=== PATIENT | male | born 1935 | race Caucasian/White ===

== ENCOUNTER 2021-08-01 09:49 | Day surgery (SDC) | payer MEDICARE, OTHER ==
[2021-08-01] MEDS: Lactated Ringers 1,000 ML IV SCH (10:10)
[2021-08-01] MEDS ORDERED: Propofol 200 MG/20 ML SDV ONE (10:36)
[2021-08-01] MEDS ORDERED: fentaNYL 100 MCG/2 ML SDV ONE (10:36)
[2021-08-01] MEDS ORDERED: ePHEDrine 50 MG/ML SDV ONE (11:43)
[2021-08-01 12:12] VITALS: BP 120/60; PULSE 77
--- NOTE | 2021-08-02 10:14 | OR ---
PREOPERATIVE DIAGNOSIS: Positive FIT test. POSTOPERATIVE DIAGNOSIS: Positive FIT test. PROCEDURE PERFORMED: Colonoscopy with polypectomy. COMPLICATIONS: None. SPECIMENS: Polyps at the cecum and 2 polyps at around 100 cm. ESTIMATED BLOOD LOSS: 5 mL. DESCRIPTION OF PROCEDURE: This was done in the endoscopy suite. Sedation was given per Anesthesia. He was placed in the left lateral position. First, a rectal exam was done and was normal. Scope was introduced into the rectum, slowly advanced to the rectum, sigmoid, descending, transverse, and ascending colon until the cecum was reached. Upon reaching the cecum, a relatively large polyp was found, removed in a piecemeal fashion with a hot loop forceps. The scope was then slowly withdrawn. At 100 cm, I found 2 polyps which were removed by hot loop forceps. The remainder of the exam was normal. FINAL DIAGNOSIS: Cecal polyp and 2 polyps at 100 cm. BKD: 08/01/2021 11:50:14 MODL: 08/01/2021 19:45:44 /[id number]
== END 2021-08-01 13:45 | disposition home or self-care (01) ==
LOC: VM.SDS 09:49
PROVIDERS: ATTEND Surgery
DX: D12.0 Benign neoplasm of cecum (principal); Z79.899 Other long term (current) drug therapy; Z79.82 Long term (current) use of aspirin; I10 Essential (primary) hypertension; E55.9 Vitamin D deficiency, unspecified
CPT/HCPCS: 00811; 82947; 88305; J2704; J3010; J7120